=== PATIENT | male | born 1935 | race Caucasian/White ===

== ENCOUNTER 2024-03-13 09:44 | Emergency (ER) | payer MEDICARE, BC ==
[2024-03-13] MEDS ORDERED: Clindamycin 150 MG CAP PO ONE (10:41)
[2024-03-13] MEDS ORDERED: cefTRIAXone 1 G in Water For Injection,Sterile 10 ML IV ONE (10:41)
[2024-03-13] MEDS ORDERED: Ketorolac 30 MG/ML VIAL IV ONE (10:41)
[2024-05-02 12:51] LABS: HEMATOCRIT 39.9 % (42.0-52.0); HEMOGLOBIN 12.7 g/dL (13.5-18.0); MEAN CELL VOLUME 96 fl (78-100); MEAN CORPUSCULAR HEMOGLOBIN 31 pg (27-31); MEAN CORPUSCULAR HGB CONC 32 g/dL (33-37); MEAN PLATELET VOLUME 9.9 fl (7.4-10.4); PLATELET COUNT 136 K/mm3 (130-400); RED BLOOD COUNT 4.17 M/mm3 (4.20-5.60); RED CELL DISTRIBUTION WIDTH 14.4 % (11.5-14.5); WHITE BLOOD COUNT 14.9 K/mm3 (4.8-10.8)
[2024-05-02 12:55] LABS: CALCIUM 9.1 mg/dL (8.3-10.5); TOTAL PROTEIN 5.9 g/dL (6.2-8.1)
[2024-05-02 13:34] LABS: LYMPHOCYTE 54 % (20-51); MONOCYTE 6 % (3-10); NEUTROPHILS 39 % (42-75)
== END 2024-03-13 13:20 | disposition home or self-care (01) ==
LOC: ED 09:44
PROVIDERS: Physician Assistant
DX: M25.531 Pain in right wrist (principal)
CPT/HCPCS: A4570; J0696; J1885

== ENCOUNTER → 2024-04-10 | Outpatient (CLI) | payer MEDICARE, BC | LOC: VAS 08:41 | DX: M79.89 Other specified soft tissue disorders (principal) ==